=== PATIENT | male | born 1970 | race Caucasian/White ===

== ENCOUNTER → 2018-12-08 13:02 | Outpatient (CLI) | payer OTHER, SELFPAY ==
--- NOTE | 2018-12-08 | DI.RAD.S_ITS ---
PROCEDURE: FL KNEE INJECTION MR/CT RT INDICATIONS: rt knee pain TECHNIQUE: The indications, alternatives, benefits, risks, and complications of the procedure were explained to the patient. Written informed consent was obtained and placed in the chart. The knee was examined fluoroscopically, and a site chosen for knee joint injection. The skin was prepped and draped in a sterile fashion, and 1% Lidocaine infiltrated from the skin down to the articular surface. A hypodermic needle was then introduced into the joint and iodinated contrast media was instilled to confirm the intra-articular needle tip placement. This was followed by approximately 50 mL dilute solution of a gadolinium containing MR contrast agent. The needle was removed and a bandage was applied. An Sotero wrap was then applied around the knee joint to keep the contrast from collecting in the suprapatellar recess. The patient experienced no complications throughout the procedure and left the fluoroscopic suite in no apparent distress. FINDINGS: Single fluoroscopic spot image demonstrates intra-articular location to injected iodinated contrast. IMPRESSION: Successful fluoroscopically guided administration of dilute Gadolinium solution into the knee joint for MR arthrogram. Dictated by: Jake Scherer M.D. on 12/08/2018 at 17:18 Approved by: Jake Scherer M.D. on 12/08/2018 at 17:18
--- NOTE | 2018-12-08 | DI.MRI.S_ITS ---
PROCEDURE: MR KNEE RT W CON INDICATIONS: RIGHT KNEE MENISCAL TEAR TECHNIQUE: After the administration of 50 mL of dilute intra-articular Gadolinium contrast, sagittal T1 spin echo with fat saturation and PD fast spin echo with fat saturation, coronal T1 spin echo with and without fat saturation, coronal T2 fast spin echo with fat saturation, axial PD fast spin echo with fat saturation through the knee. COMPARISON: None. FINDINGS: Image quality: Excellent. Menisci: There is truncated appearance of the posterior horn and body of the lateral meniscus presumably postsurgical change. However, within the lateral aspect of the intercondylar notch, there appears to be a flipped meniscal fragment suggestive of bucket handle tear, for example image 14 series 8, image 20 series 11. The medial meniscus appears grossly intact. Cruciate ligaments: The anterior cruciate ligament appears intact although abnormal intrasubstance signal change and thickening suggestive of age indeterminate, presumed chronic, sprain. The posterior cruciate ligament appears intact. Medial structures: The medial collateral ligament appears intact. The posterior oblique ligament, semimembranosus tendon insertions, oblique popliteal ligament, and meniscocapsular junction appear intact. Visualized portions of the pes anserinus tendons appear normal. No abnormal bursal fluid. Lateral structures: The lateral collateral ligament proximal segment sprain, age unknown. The long and short heads of the biceps femoris tendon appear intact. The popliteus tendon appears normal; the popliteofibular ligament appears intact. The posterosuperior and anteroinferior popliteomeniscal fascicles appear intact. The arcuate and fabellofibular ligaments appear intact around the lateral inferior geniculate artery. Iliotibial band appears normal. Anterior structures: The quadriceps and patellar tendons appear intact. Patellar alignment is normal. No femoral trochlear dysplasia or ventral trochlear prominence. No edema in the infrapatellar fat pad. Bone and cartilage: No focal marrow contusion or discrete low signal fracture line. Within the medial compartment, diffuse partial thickness loss of the femoral and tibial articular cartilage. Within the lateral compartment, diffuse partial thickness loss of the femoral cartilage. Within the patellofemoral compartment, no focal articular cartilage defect. Joint space: Partially ruptured robertson's cyst measuring approximately 3 cm in the cephalocaudad dimension. No intra-articular loose bodies identified. IMPRESSION: Findings suggest displaced bucket-handle tear of the lateral meniscus, possibly superimposed on background of postsurgical changes. Intact medial meniscus. Age-indeterminate sprain of the anterior cruciate ligament. Degenerative joint disease, involving the medial and lateral compartments. Partially ruptured Robertson's cyst. Dictated by: Jake Scherer M.D. on 12/08/2018 at 15:15 Approved by: Jake Scherer M.D. on 12/08/2018 at 15:25
== END ==
PROVIDERS: PCP Family Medicine; Visit Provider Orthopaedic Surgery
DX: S83.281A Other tear of lateral meniscus, current injury, right knee, initial encounter (principal); S83.511A Sprain of anterior cruciate ligament of right knee, initial encounter; M17.11 Unilateral primary osteoarthritis, right knee; M66.0 Rupture of popliteal cyst
CPT/HCPCS: 27369; 73722; 77002

== ENCOUNTER → 2019-06-10 08:34 | Outpatient (CLI) | payer OTHER, SELFPAY ==
[2019-06-10 09:24] LABS: Hematocrit 40.3 % (41-53); Hemoglobin 14.2 g/dL (13.5-17.5); Mean Corpuscular HGB Conc 35.3 % (30-36); Mean Corpuscular Volume 96.5 fL (80-100); Platelet Count 214 X10^3/uL (150-400); Red Blood Cell Count 4.18 X10^6/uL (4.5-5.9); Red Cell Distribution Width 13.3 % (11.6-14.8); White Blood Cell Count 7.3 X10^3/uL (4.5-11.0)
[2019-06-10 09:50] LABS: Neutrophils Absolute Manual 4088 /uL (3000-5900); RBC Morphology Normal Morphology; Total Cells Counted 100
[2019-06-10 09:55] LABS: Appearance Urine UA CLEAR; Bilirubin Urine UA NEGATIVE (NEGATIVE); Color Urine UA YELLOW; Glucose Urine UA NEGATIVE (Negative); Ketones Urine UA NEGATIVE (NEGATIVE); Leukocyte Esterase Urine UA NEGATIVE (NEGATIVE); Nitrite Urine UA NEGATIVE (Negative); Occult Blood Urine UA NEGATIVE (Negative); Protein Urine UA TRACE (Negative); Urobilinogen Urine UA 0.2 E.U./dL (0.2)
[2019-06-10 10:06] LABS: Alanine Aminotransferase 18 IU/L (21-72); Albumin 4.1 g/dL (3.5-5.0); Albumin Globulin Ratio 1.4 (1.0-2.8); Alkaline Phosphatase 63 U/L (38-126); Aspartate Aminotransferase 29 IU/L (17-59); BUN Creatinine Ratio 15.7 (6-22); Bilirubin Total 0.6 mg/dL (0.2-1.3); Blood Urea Nitrogen 11 mg/dL (9-20); Calcium 9.3 mg/dL (8.4-10.2); Carbon Dioxide 32 mmol/L (22-32); Chloride 103 mmol/L (98-107); Cholesterol 161 mg/dL (140-199); Estimated Glomerular Filt Rate > 60.0 mL/min (>60); Globulin 2.9 g/dL (1.7-4.1); Glucose 94 mg/dL (70-100); HDL Cholesterol 43 mg/dL (40-60); HEMOLYSIS < 15 (0-50); LDL Cholesterol Calculated 88 mg/dL (<100); Potassium 4.3 mmol/L (3.4-5.1); Sodium 140 mmol/L (137-145); Triglycerides 150 mg/dL (35-150)
[2019-06-10 10:35] LABS: Prostate Specific Antigen Scrn 1.02 ng/mL (0.1-4.0)
[2019-06-10 10:38] LABS: Thyroid Stimulating Hormone 0.57 uIU/mL (0.47-4.68)
== END ==
PROVIDERS: PCP Family Medicine; Visit Provider Family Medicine
DX: F32.9 Major depressive disorder, single episode, unspecified (principal); F41.9 Anxiety disorder, unspecified; Z12.5 Encounter for screening for malignant neoplasm of prostate; Z13.220 Encounter for screening for lipoid disorders; Z13.29 Encounter for screening for other suspected endocrine disorder; Z91.09 Other allergy status, other than to drugs and biological substances
CPT/HCPCS: 36415; 80053; 80061; 81003; 84443; 85025; G0103

== ENCOUNTER → 2019-11-13 10:32 | Outpatient (CLI) | payer OTHER, SELFPAY ==
[2019-11-13 11:15] LABS: Influenza A - CEPHEID Flu A POSITIVE (NEGATIVE); Influenza B - CEPHEID Flu B NEGATIVE (NEGATIVE)
== END ==
PROVIDERS: PCP Family Medicine; Visit Provider Physician Assistant
DX: R50.9 Fever, unspecified (principal)
CPT/HCPCS: 87502

== ENCOUNTER → 2020-04-14 14:21 | Outpatient (CLI) | payer OTHER, SELFPAY ==
--- NOTE | 2020-04-14 14:30 | DI.RAD.S_ITS ---
PROCEDURE: XR CLAVICLE RT INDICATIONS: Pain TECHNIQUE: 2 views of the clavicle were acquired. COMPARISON: None. FINDINGS: Bones: No fractures or dislocations. No suspicious bony lesions. Soft tissues: No suspicious soft tissue calcifications. IMPRESSION: Normal for age. Source of pain is not identified. Dictated by: Jarad Voss M.D. on 04/14/2020 at 15:43 Approved by: Jarad Voss M.D. on 04/14/2020 at 15:43
--- NOTE | 2020-04-14 14:30 | DI.RAD.S_ITS ---
PROCEDURE: XR LUMBAR SPINE 2-3V INDICATIONS: back pain TECHNIQUE: 2 views of the lumbar spine were acquired. COMPARISON: None. FINDINGS: Bones: 5 [id number] vertebrae are present. There is normal bony alignment. No vertebral body compression fractures. No suspicious bony lesions. Soft tissues: Overlying bowel gas pattern is normal. No suspicious soft tissue calcifications. IMPRESSION: Minimal degenerative disc disease L3-L4, no subluxation or compression fracture found. Dictated by: Jarad Voss M.D. on 04/14/2020 at 15:44 Approved by: Jarad Voss M.D. on 04/14/2020 at 15:45
--- NOTE | 2020-04-14 14:30 | DI.RAD.S_ITS ---
PROCEDURE: XR THORACIC SPINE 3V INDICATIONS: back pain TECHNIQUE: 3 views of the thoracic spine were acquired. COMPARISON: None. FINDINGS: Bones: No fractures or dislocations. No suspicious bony lesions. Twelve pairs of ribs are noted, and appear intact where visualized. Soft tissues: No paravertebral stripe thickening. IMPRESSION: Mild mid and lower thoracic degenerative disc disease, no compression fracture found, source of new back pain is not identified. Dictated by: Jarad Voss M.D. on 04/14/2020 at 15:43 Approved by: Jarad Voss M.D. on 04/14/2020 at 15:44
[2020-04-14 14:57] LABS: Alanine Aminotransferase 14 IU/L (<50); Albumin 4.2 g/dL (3.5-5.0); Albumin Globulin Ratio 1.4 (1.0-2.8); Alkaline Phosphatase 84 U/L (38-126); Aspartate Aminotransferase 23 IU/L (17-59); BUN Creatinine Ratio 21.9 (6-22); Bilirubin Total 0.6 mg/dL (0.2-1.3); Blood Urea Nitrogen 14 mg/dL (9-20); Calcium 9.4 mg/dL (8.4-10.2); Carbon Dioxide 26 mmol/L (22-32); Chloride 105 mmol/L (98-107); Estimated Glomerular Filt Rate > 60.0 mL/min (>60); Globulin 3.1 g/dL (1.7-4.1); Glucose 131 mg/dL (70-100); HEMOLYSIS < 15 (0-50); Potassium 4.2 mmol/L (3.4-5.1); Sodium 136 mmol/L (137-145); Total Protein 7.3 g/dL (6.3-8.2)
== END ==
PROVIDERS: Referring Provider Registered Nurse; Visit Provider Registered Nurse
DX: Q74.0 Other congenital malformations of upper limb(s), including shoulder girdle (principal); M54.5 Low back pain; F41.8 Other specified anxiety disorders
CPT/HCPCS: 36415; 72072; 72100; 73000; 80053

== ENCOUNTER → 2020-06-27 08:05 | Outpatient (CLI) | payer OTHER, SELFPAY ==
--- NOTE | 2020-06-27 08:08 | DI.RAD.S_ITS ---
PROCEDURE: XR CHEST 2V INDICATIONS: history of smoking; bone lesion TECHNIQUE: 2 views of the chest were acquired. COMPARISON: [facility], MR, MR KNEE RT W CON, 12/08/2018, 13:48. FINDINGS: Surgical changes and devices: None. Lungs and pleura: Lungs are clear. No pleural effusions or pneumothorax. Mediastinum: Mediastinal contours are normal. Heart size is normal. Bones and chest wall: No suspicious bony abnormalities. Soft tissues appear unremarkable. IMPRESSION: Normal for age, source of current reported bone lesion is not seen. Depending on the clinical status, however, follow-up by CT scanning may be warranted for more accurate assessment of the chest including mediastinal and hilar structures. A bone lesion on this examination is not found. It would be helpful to provide more details regarding this reported bone lesion in terms of comparison films and site of clinical concern. Dictated by: Jarad Voss M.D. on 06/27/2020 at 9:27 Approved by: Jarad Voss M.D. on 06/27/2020 at 9:29
--- NOTE | 2020-06-27 08:54 | DI.CT.S_ITS ---
PROCEDURE: CT SOFT TISSUE NECK W CON INDICATIONS: lesion of bone TECHNIQUE: After the administration of intravenous contrast, 3.0 mm axial sections acquired from the sella to the aortic arch. Additional oblique axial 3.0 mm sections acquired through the pharynx. 3 mm thick coronal and sagittal reformats were generated. For radiation dose reduction, the following was used: automated exposure control. COMPARISON: None. FINDINGS: Image quality: Excellent. Lymph nodes: No enlarged lymph nodes seen throughout the neck. Vessels: Visualized vasculature appears patent. Neck spaces: The oropharynx, nasopharynx, and pharynx demonstrate no mucosal lesions. The vocal cords, false vocal cords, pyriform sinuses, epiglottis, vallecula, and tongue base all appear normal. Extramucosal spaces appear unremarkable. Glands: The parotid and submandibular glands appear normal. Thyroid gland is unremarkable . Miscellaneous: Visualized brain and orbits appear normal. Lung apices appear clear. Superficial soft tissues appear normal. Bones: There is soft tissue prominence surrounding the right clavicular head. No visualized underlying osseous erosion, sclerosis or fracture. Visualized sinuses and mastoids appear unremarkable. IMPRESSION: 1. Soft tissue prominence surrounding the right clavicular head. This is overall nonspecific. This can be seen with inflammatory change. However, recommend correlation to patient's symptoms and if symptoms are not appropriate for infectious/inflammatory etiology, further evaluation with biopsy may be obtained. Dictated by: Gina Arizmendi M.D. on 06/27/2020 at 16:58 Approved by: Gina Arizmendi M.D. on 06/27/2020 at 17:00
[2020-06-27 09:16] LABS: Appearance Urine UA CLEAR; Bilirubin Urine UA NEGATIVE (NEGATIVE); Color Urine UA YELLOW; Glucose Urine UA NEGATIVE (Negative); Ketones Urine UA NEGATIVE (NEGATIVE); Leukocyte Esterase Urine UA NEGATIVE (NEGATIVE); Nitrite Urine UA NEGATIVE (Negative); Occult Blood Urine UA NEGATIVE (Negative); Protein Urine UA NEGATIVE (Negative); Specific Gravity Urine UA <=1.005 (1.000-1.035); Urobilinogen Urine UA 0.2 E.U./dL (0.2); pH Urine UA 7.5 (4.5-8.0)
[2020-06-27 09:25] LABS: Add Manual Diff / Slide Review NO; Basophils Absolute Auto 0 /uL (0-100); Basophils Percent Auto 0.4 % (0-2); Eosinophils Absolute Auto 300 /uL (0-450); Eosinophils Percent Auto 4.8 % (2-4); Hematocrit 37.2 % (41-53); Hemoglobin 12.9 g/dL (13.5-17.5); Lymphocytes Absolute Auto 2000 /uL (1100-4500); Lymphocytes Percent Auto 29.9 % (25-40); Mean Corpuscular HGB Conc 34.6 % (30-36); Mean Corpuscular Hemoglobin 33.2 PG (26-34); Mean Corpuscular Volume 95.9 fL (80-100); Monocytes Absolute Auto 600 /uL (0-900); Monocytes Percent Auto 8.5 % (3-14); Neutrophils Absolute Auto 3700 /uL (1500-7000); Neutrophils Percent Auto 56.4 % (50-75); Platelet Count 195 X10^3/uL (150-400); Red Blood Cell Count 3.87 X10^6/uL (4.5-5.9); Red Cell Distribution Width 13.1 % (11.6-14.8); White Blood Cell Count 6.6 X10^3/uL (4.5-11.0)
[2020-06-27 09:37] LABS: Cholesterol 151 mg/dL (140-199); HDL Cholesterol 45 mg/dL (40-60); LDL Cholesterol Calculated 94 mg/dL (<100); Triglycerides 61 mg/dL (35-150)
--- NOTE | 2020-06-27 11:45 | DI.RAD.S_ITS ---
PROCEDURE: XR CHEST 2V INDICATIONS: diagnostic TECHNIQUE: 2 views of the chest were acquired. COMPARISON: [facility], CR, XR CHEST 2V, 06/27/2020, 8:00. FINDINGS: Surgical changes and devices: None. Lungs and pleura: Lungs are clear. No pleural effusions or pneumothorax. Mediastinum: Mediastinal contours are normal. Heart size is normal. Bones and chest wall: No suspicious bony abnormalities. Soft tissues appear unremarkable. IMPRESSION: No acute cardiopulmonary pathology. Dictated by: Lucas Nunes M.D. on 06/27/2020 at 14:00 Approved by: Lucas Nunes M.D. on 06/27/2020 at 14:00
== END ==
PROVIDERS: Referring Provider Registered Nurse; Visit Provider Registered Nurse
DX: M89.9 Disorder of bone, unspecified (principal); Q74.0 Other congenital malformations of upper limb(s), including shoulder girdle; Q79.9 Congenital malformation of musculoskeletal system, unspecified; Z87.891 Personal history of nicotine dependence
CPT/HCPCS: 36415; 70491; 71046; 80061; 81003; 85025; Q9967

== ENCOUNTER → 2020-06-28 15:42 | Outpatient (CLI) | payer OTHER, SELFPAY ==
[2020-06-28 16:46] LABS: Total Iron Binding Capacity 349 ug/dL (261-462)
[2020-06-28 17:14] LABS: Ferritin 28 ng/mL (18-464)
[2020-06-28 17:44] LABS: Folate 15.4 ng/mL (2.76-20.0); Vitamin B12 282 pg/mL (239-931)
== END ==
PROVIDERS: PCP Registered Nurse; Referring Provider Registered Nurse; Visit Provider Registered Nurse
DX: D64.9 Anemia, unspecified (principal)
CPT/HCPCS: 82607; 82728; 82746; 83550

== ENCOUNTER → 2020-07-01 08:03 | Outpatient (CLI) | payer OTHER, SELFPAY ==
--- NOTE | 2020-07-01 08:04 | DI.CT.S_ITS ---
PROCEDURE: CT CHEST W CON INDICATIONS: bone anomaly; hx of smoking TECHNIQUE: After the administration of intravenous contrast, 5 mm thick sections acquired from the pulmonary apices to the posterior costophrenic angles. 1 mm axial lung, 5 mm thick coronal and sagittal reformats and 7 mm axial MIP were acquired. For radiation dose reduction, the following was used: automated exposure control, adjustment of mA and/or kV according to patient size. COMPARISON: [facility], CT, CT SOFT TISSUE NECK W CON, 06/27/2020, 8:18. [facility], CR, XR CHEST 2V, 06/27/2020, 11:34. FINDINGS: Image quality: Excellent. Lungs and pleura: No acute air space opacities. No pleural effusions or pneumothorax. Central and peripheral airways are patent and normal in caliber. Mediastinum: Heart size is normal. No pericardial effusion. No mediastinal or hilar adenopathy by size criteria. Thoracic aorta and central pulmonary arteries are normal in size. Esophagus is normal in caliber. No hiatal hernia. Bones and chest wall: No suspicious bony lesions. No vertebral body compression fractures. No axillary or supraclavicular adenopathy by size criteria. Thyroid gland unremarkable where visualized . There is grossly unremarkable appearance of both sternoclavicular joints. Abdomen: Visualized upper abdominal solid organs appear normal. Upper abdominal bowel loops are normal in caliber. IMPRESSION: No acute abnormality. Overall, grossly negative examination. Dictated by: Jake Scherer M.D. on 07/01/2020 at 10:19 Approved by: Jake Scherer M.D. on 07/01/2020 at 10:31
[2020-07-04 07:41] LABS: Fecal Immunochemical Test Negative (Negative)
== END ==
PROVIDERS: PCP Registered Nurse; Referring Provider Registered Nurse; Visit Provider Registered Nurse
DX: Q79.9 Congenital malformation of musculoskeletal system, unspecified (principal); Q74.0 Other congenital malformations of upper limb(s), including shoulder girdle; D64.9 Anemia, unspecified; Z87.891 Personal history of nicotine dependence
CPT/HCPCS: 71260; 82274

== ENCOUNTER → 2021-03-17 11:53 | Outpatient (CLI) | payer OTHER, SELFPAY ==
--- NOTE | 2021-03-17 11:54 | DI.US.S_ITS ---
PROCEDURE: US SCROTUM INDICATIONS: RIGHT TESTICULAR LUMP TECHNIQUE: Real-time scanning was performed of the scrotum and testicles, with image documentation. Color and pulse Doppler interrogation was performed of both testicles. COMPARISON: None. FINDINGS: Right: Testicle is normal in size at 4.2 x 1.9 x 3.6 cm, and homogenous in echotexture. There is occasional microlithiasis. 3 mm epididymal head cyst. In the area of palpable abnormality, there is homogeneous focal thickening in the epididymal tail. No abnormal mass or vascularity. Epididymis is otherwise normal in overall size and morphology. No hydrocele or varicoceles. Overlying scrotal skin is normal in thickness. Left: Testicle is normal in size at 3.3 x 1.6 x 4.1 cm, and homogeneous in echotexture. Occasional microlithiasis. There is a 4 mm intratesticular cyst in the superomedial aspect. No internal debris or peripheral vascularity. There are two complex epididymal head cysts with low level internal echoes. The larger measures 1.4 cm. No suspicious vascularity. No hydrocele or varicoceles. Overlying scrotal skin is normal in thickness. Doppler: Color and pulse Doppler demonstrate normal and symmetric arterial flow in both testicles. IMPRESSION: 1. Slightly thickened but otherwise normal appearing epididymal tail corresponds to the right scrotal palpable abnormality. 2. Left-sided complex epididymal head cysts. 3. Occasional bilateral microlithiasis. Dictated by: Iesha Garcia M.D. on 03/17/2021 at 13:52 Approved by: Iesha Garcia M.D. on 03/17/2021 at 13:57
== END ==
PROVIDERS: PCP Registered Nurse; Referring Provider Registered Nurse; Visit Provider Registered Nurse
DX: N50.89 Other specified disorders of the male genital organs (principal); N50.3 Cyst of epididymis
CPT/HCPCS: 76870

== ENCOUNTER → 2021-04-14 08:26 | Outpatient (CLI) | payer OTHER, SELFPAY ==
--- NOTE | 2021-04-14 08:28 | DI.RAD.S_ITS ---
PROCEDURE: XR KNEE LT 3V INDICATIONS: pain and swelling to the left knee TECHNIQUE: 3 views of the knee were acquired. COMPARISON: None. FINDINGS: Bones: No fracture or dislocation. Tricompartmental degenerative changes consistent with osteoarthritis. No significant joint space narrowing. Soft tissues: No joint effusion. No suspicious soft tissue calcifications. IMPRESSION: Mild osteoarthritis of the left knee. Dictated by: Ambrocio Cash M.D. on 04/14/2021 at 9:00 Approved by: Ambrocio Cash M.D. on 04/14/2021 at 9:08
[2021-04-14 09:22] LABS: Add Manual Diff / Slide Review NO; Basophils Absolute Auto 0 /uL (0-100); Basophils Percent Auto 0.3 % (0-2); Eosinophils Absolute Auto 300 /uL (0-450); Eosinophils Percent Auto 4.6 % (2-4); Hematocrit 41.3 % (41-53); Lymphocytes Absolute Auto 2100 /uL (1100-4500); Lymphocytes Percent Auto 36.8 % (25-40); Mean Corpuscular HGB Conc 33.8 % (30-36); Mean Corpuscular Hemoglobin 32.6 PG (26-34); Mean Corpuscular Volume 96.4 fL (80-100); Monocytes Absolute Auto 600 /uL (0-900); Monocytes Percent Auto 10.1 % (3-14); Neutrophils Absolute Auto 2800 /uL (1500-7000); Neutrophils Percent Auto 48.2 % (50-75); Platelet Count 202 X10^3/uL (150-400); Red Blood Cell Count 4.29 X10^6/uL (4.5-5.9); Red Cell Distribution Width 12.9 % (11.6-14.8); White Blood Cell Count 5.8 X10^3/uL (4.5-11.0)
[2021-04-14 09:44] LABS: Alanine Aminotransferase 19 IU/L (<50); Albumin 4.2 g/dL (3.5-5.0); Albumin Globulin Ratio 1.3 (1.0-2.8); Alkaline Phosphatase 73 U/L (38-126); Aspartate Aminotransferase 27 IU/L (17-59); BUN Creatinine Ratio 9.5 (6-22); Bilirubin Total 0.3 mg/dL (0.2-1.3); Blood Urea Nitrogen 6 mg/dL (9-20); Calcium 9.7 mg/dL (8.4-10.2); Carbon Dioxide 29 mmol/L (22-32); Chloride 107 mmol/L (98-107); Estimated Glomerular Filt Rate > 60.0 mL/min (>60); Globulin 3.2 g/dL (1.7-4.1); Glucose 79 mg/dL (70-100); HEMOLYSIS < 15 (0-50); Sodium 140 mmol/L (137-145); Total Protein 7.4 g/dL (6.3-8.2)
[2021-04-14 09:45] LABS: Potassium 5.5 mmol/L (3.4-5.1)
== END ==
PROVIDERS: PCP Registered Nurse; Referring Provider Registered Nurse; Visit Provider Registered Nurse
DX: M25.462 Effusion, left knee (principal); M25.562 Pain in left knee; D64.9 Anemia, unspecified; F41.8 Other specified anxiety disorders; M17.12 Unilateral primary osteoarthritis, left knee
CPT/HCPCS: 36415; 73562; 80053; 85025

== ENCOUNTER → 2022-02-05 08:39 | Outpatient (CLI) | payer OTHER, SELFPAY ==
--- NOTE | 2022-02-05 08:40 | DI.US.S_ITS ---
PROCEDURE: US SCROTUM INDICATIONS: Right epididymal mass TECHNIQUE: Real-time scanning was performed of the scrotum and testicles, with image documentation. Color and pulse Doppler interrogation was performed of both testicles. COMPARISON: [facility], , US SCROTUM, 03/17/2021, 12:06. FINDINGS: Right: Testicle is normal in size at 4.9 x 2 x 2.7 cm, and homogenous in echotexture. Epididymis is normal in overall size and demonstrates several cysts, with the largest measuring up to 8 mm. No hydrocele or varicoceles. Overlying scrotal skin is normal in thickness. Left: Testicle is normal in size at 3.7 x 2 x 3.2 cm, and demonstrates a heterogeneous appearance, with relatively prominent rete testis. There is a 3 mm cyst seen superiorly. Epididymis is normal in overall size and demonstrates several cysts, with the largest measuring up to 1.9 cm. No hydrocele or varicoceles. Overlying scrotal skin is normal in thickness. Doppler: Color and pulse Doppler demonstrate normal and symmetric arterial flow in both testicles. IMPRESSION: Bilateral epididymal cysts are seen, left larger than right. These likely represent spermatoceles. No intratesticular masses are seen. The left testicle demonstrates mild heterogeneity with a 3 mm cyst and relatively prominent rete testis. Dictated by: Isrrael Pa M.D. on 02/05/2022 at 10:50 Approved by: Isrrael Pa M.D. on 02/05/2022 at 10:54
== END ==
PROVIDERS: PCP Registered Nurse; Referring Provider Urology; Visit Provider Urology
DX: N50.3 Cyst of epididymis (principal); N50.89 Other specified disorders of the male genital organs; Z98.52 Vasectomy status
CPT/HCPCS: 76870

== ENCOUNTER → 2022-09-24 08:03 | Outpatient (CLI) | payer OTHER, SELFPAY ==
[2022-09-24 08:47] LABS: Hemoglobin 13.5 g/dL (13.5-17.5); Mean Corpuscular HGB Conc 33.9 % (30-36); Mean Corpuscular Hemoglobin 32.3 PG (26-34); Mean Corpuscular Volume 95.3 fL (80-100); Platelet Count 226 X10^3/uL (150-400); Red Cell Distribution Width 13.4 % (11.6-14.8); White Blood Cell Count 7.9 X10^3/uL (4.5-11.0)
[2022-09-24 09:03] LABS: Alanine Aminotransferase 12 IU/L (<50); Albumin 4.1 g/dL (3.5-5.0); Albumin Globulin Ratio 1.2 (1.0-2.8); Alkaline Phosphatase 77 U/L (38-126); Aspartate Aminotransferase 18 IU/L (17-59); BUN Creatinine Ratio 12.9 (6-22); Bilirubin Total 0.4 mg/dL (0.2-1.3); Blood Urea Nitrogen 8 mg/dL (9-20); Calcium 9.1 mg/dL (8.4-10.2); Carbon Dioxide 25 mmol/L (22-32); Chloride 106 mmol/L (98-107); Cholesterol 174 mg/dL (140-199); Estimated Glomerular Filt Rate > 60 mL/min (>60); Globulin 3.5 g/dL (1.7-4.1); Glucose 106 mg/dL (70-100); HDL Cholesterol 44 mg/dL (40-60); HEMOLYSIS < 15 (0-50); LDL Cholesterol Calculated 111 mg/dL (<100); Potassium 4.3 mmol/L (3.4-5.1); Sodium 139 mmol/L (137-145); Total Protein 7.6 g/dL (6.3-8.2); Triglycerides 97 mg/dL (35-150)
[2022-09-24 09:20] LABS: Free T3, Triiodothyronine Free 3.94 pg/mL (2.77-5.27); Free T4, Direct Thyroxine 0.83 ng/dL (0.78-2.19)
== END ==
PROVIDERS: PCP Nurse Practitioner; Referring Provider Nurse Practitioner; Visit Provider Nurse Practitioner
DX: Z00.00 Encounter for general adult medical examination without abnormal findings (principal); Z12.5 Encounter for screening for malignant neoplasm of prostate
CPT/HCPCS: 36415; 80053; 80061; 84439; 84443; 84481; 85027; G0103

== ENCOUNTER → 2022-10-10 09:02 | Outpatient (CLI) | payer OTHER, SELFPAY ==
--- NOTE | 2022-10-10 09:03 | DI.US.S_ITS ---
PROCEDURE: US SCROTUM INDICATIONS: Bilateral spermatocele TECHNIQUE: Real-time scanning was performed of the scrotum and testicles, with image documentation. Color and pulse Doppler interrogation was performed of both testicles. COMPARISON: [facility], , US SCROTUM, 02/05/2022, 8:53. FINDINGS: Right: Testicle is normal in size at 4.8 x 2.4 x 3.5 cm, and homogenous in echotexture. 5 mm cyst within the epididymal head. Epididymis is otherwise normal in overall size and morphology. Tubular ectasia. No hydrocele or varicoceles. Overlying scrotal skin is normal in thickness. Left: 4 mm testicular cyst is present. Testicle is normal in size at 4.1 x 2.0 x 3.0 cm, and otherwise homogeneous in echotexture. 2 mm cyst within the epididymal tail. Tubular ectasia. Epididymis is otherwise normal in overall size and morphology. No hydrocele or varicoceles. Overlying scrotal skin is normal in thickness. Doppler: Color and pulse Doppler demonstrate normal and symmetric arterial flow in both testicles. IMPRESSION: 1. Bilateral epididymal cysts . 2. Bilateral tubular ectasia. 3. No acute process. Dictated by: Maria E Lantigua M.D. on 10/10/2022 at 11:04 Approved by: Maria E Lantigua M.D. on 10/10/2022 at 11:13
== END ==
PROVIDERS: PCP Nurse Practitioner; Referring Provider Urology; Visit Provider Urology
DX: N50.89 Other specified disorders of the male genital organs (principal); N43.40 Spermatocele of epididymis, unspecified; N50.3 Cyst of epididymis
CPT/HCPCS: 76870